=== PATIENT | male | born 1970 | race Caucasian/White ===

== ENCOUNTER → 2017-12-03 | Outpatient (CLI) | payer OTHER | END | disposition home or self-care (01) | LOC: HKI 13:28 | DX: M25.551 Pain in right hip (principal) | CPT/HCPCS: Z7500 ==

== ENCOUNTER 2017-12-04 05:28 | Inpatient (IN) | payer OTHER ==
[2017-12-04] MEDS: ACETAMINOPHEN 1000MG/100ML IV 100 ML IVPB (06:21)
[2017-12-04] MEDS: ONDANSETRON 4 MG INJ IV ×3 (06:22→20:51)
[2017-12-04] MEDS: LANSOPRAZOLE 30 MG CAP PO (06:22)
[2017-12-04] MEDS: CELECOXIB 200 MG CAP PO (06:22)
[2017-12-04] MEDS: DEXAMETHASONE 4 MG/ML 1 ML INJ IV (06:22)
[2017-12-04] MEDS: oxyCODONE (CR) 10 MG TAB [oxyCONTIN] PO (06:23)
[2017-12-04] MEDS: CEFAZOLIN 2 GM/50 ML (PMX) 50 ML IVPB (07:00)
[2017-12-04] MEDS ORDERED: TRANEXAMIC ACID 1,000 MG in SOD CHLORIDE 0.9% 100 ML IVPB (07:00)
[2017-12-04] MEDS: TRANEXAMIC ACID 1,000 MG in SOD CHLORIDE 0.9% 100 ML IVPB (07:00)
[2017-12-04] MEDS ORDERED: ALBUMIN HUMAN 5% 250 ML INJ (07:00)
[2017-12-04] MEDS: HIP PAIN COCKTAIL (CEFUROXIME) INJ ×2 (07:00→09:07)
[2017-12-04] MEDS: LACTATED RINGER'S 1,000 ML IV* (07:00)
[2017-12-04 07:01] LABS: POTASSIUM 4.8 mmol/L (3.5-5.1)
[2017-12-04] MEDS ORDERED: MIDAZOLAM 1 MG/ML 2 ML INJ (07:23)
[2017-12-04] MEDS ORDERED: PROPOFOL 20 ML ×5 (07:23→13:54)
[2017-12-04] MEDS ORDERED: morphine SULFATE/PF (10 MG/10 ML) INJ (07:24)
[2017-12-04] MEDS ORDERED: ONDANSETRON 4 MG INJ (07:24)
[2017-12-04] MEDS ORDERED: METOCLOPRAMIDE 10 MG INJ (07:24)
[2017-12-04] MEDS ORDERED: FENTAnyl 50 MCG/ML VIAL ×2 (07:33→10:42)
[2017-12-04] MEDS ORDERED: SUCCINYLCHOLINE CHLORIDE 100 MG/5 ML SYG IV (08:06)
[2017-12-04] MEDS ORDERED: KETOROLAC 30 MG INJ (08:07)
[2017-12-04] MEDS ORDERED: EPHEDrine SULFATE 50 MG/5 ML SYG (08:09)
[2017-12-04] MEDS: POLYMYXIN/BACITRACIN 1L IRRIG ×3 (09:07→13:46)
[2017-12-04] MEDS: BACITRACIN 50000 UNITS INJ (09:07)
[2017-12-04] MEDS: POLYMYXIN B 500000 UNIT INJ (09:07)
[2017-12-04] MEDS ORDERED: HYDROmorphONE (0.2 MG/ML) 10ML SYG IV ×3 (09:30)
[2017-12-04] MEDS ORDERED: ONDANSETRON 4 MG INJ IV ×2 (09:30→14:30)
[2017-12-04] MEDS ORDERED: DIPHENHYDRAMINE 50 MG INJ IV (09:30)
[2017-12-04] MEDS ORDERED: MEPERIDINE 25 MG INJ IV (09:30)
[2017-12-04] MEDS ORDERED: ALBUMIN HUMAN 5% 250 ML (11:22)
[2017-12-04] MEDS ORDERED: PHENYLephrine (100 MCG/ML) 5ML SYG ×4 (12:20→14:48)
[2017-12-04 12:44] LABS: IMMEDIATE SPIN CROSSMATCH 1 3
[2017-12-04] MEDS ORDERED: PROPOFOL 100 ML (13:54)
[2017-12-04] MEDS ORDERED: ROPIVACAINE 0.5 % 30 ML VIAL (13:58)
[2017-12-04] MEDS: SOD CHLORIDE 0.9% 1,000 ML IV ×2 (14:26→21:14)
[2017-12-04] MEDS ORDERED: MAGNESIUM HYDROXIDE 30ML CUP PO (14:30)
[2017-12-04] MEDS ORDERED: CEFAZOLIN 1 GM/50 ML (PMX) 50 ML IVPB (14:30)
[2017-12-04] MEDS ORDERED: NALOXONE (0.4 MG/ML) INJ IV (14:30)
[2017-12-04] MEDS ORDERED: BISACODYL 10 MG SUPP PR (14:30)
[2017-12-04] MEDS ORDERED: DIPHENHYDRAMINE 50 MG INJ IM (14:30)
[2017-12-04] MEDS ORDERED: NA PHOSPHATE/BIPHOS 133 ML ENEMA PR (14:30)
[2017-12-04] MEDS ORDERED: NACL 0.9% 3 ML SYG IV (14:30)
[2017-12-04] MEDS ORDERED: SENNA/DOCUSATE NA (8.6MG/50MG) TAB PO (14:30)
[2017-12-04] MEDS: CEFAZOLIN 1 GM/50 ML (PMX) 50 ML IVPB ×2 (15:53→22:51)
[2017-12-04] MEDS: DOCUSATE SODIUM 100 MG CAP PO (15:54)
[2017-12-04] MEDS: ASPIRIN (EC) 325 MG TAB PO ×2 (15:55→20:51)
[2017-12-04] MEDS ORDERED: ASPIRIN (EC) 325 MG TAB PO (21:00)
[2017-12-04] MEDS: HYDROCODONE/APAP (5/325) TAB GTB (22:57)
[2017-12-05] MEDS: ONDANSETRON 4 MG INJ IV ×2 (02:32→08:15)
[2017-12-05] MEDS: SOD CHLORIDE 0.9% 1,000 ML IV (02:56)
[2017-12-05] MEDS: oxyCODONE 5 MG TAB PO ×5 (04:41→23:39)
[2017-12-05 05:36] LABS: ADD MAN DIFF? NO
[2017-12-05 05:45] LABS: BASOPHILS % 0.1 % (0.0-2.0); HEMATOCRIT 24.5 % (42.0-52.0); HEMOGLOBIN 8.4 g/dl (14.0-18.0); LYMPHOCYTES % 21.7 % (15.0-51.0); MEAN CORPUSCULAR HEMOGLOBIN 30.5 pg (29.0-33.0); MEAN CORPUSCULAR HGB CONC 34.3 g/dl (32.0-37.0); MEAN CORPUSCULAR VOLUME 89.1 fl (82.0-101.0); MONOCYTE # 0.9 10^3/ul (0.3-0.9); MONOCYTES % 9.7 % (0.0-11.0); NEUTROPHIL # 6.2 10^3/ul (1.6-7.5); PLATELET COUNT 231 10^3/UL (140-415); RED BLOOD COUNT 2.75 10^6/ul (4.70-6.10); RED CELL DISTRIBUTION WIDTH 13.4 % (11.5-14.5)
[2017-12-05 05:45] LABS: WHITE BLOOD COUNT 9.1 10^3/ul (4.8-10.8)
[2017-12-05 06:00] LABS: CHOL/HDL RATIO 4.1 RATIO; CHOLESTEROL 108 mg/dl (100-200); HDL CHOLESTEROL 26 mg/dl (28-71); LDL CHOLESTEROL,CALCULATED 51 mg/dl; TRIGLYCERIDES 156 mg/dl (0-149)
[2017-12-05 06:00] LABS: MAGNESIUM 1.9 mg/dl (1.7-2.5)
[2017-12-05] MEDS ORDERED: PANTOPRAZOLE (EC) 40 MG TAB PO (06:00)
[2017-12-05] MEDS ORDERED: KETOROLAC 15 MG INJ INJ (06:00)
[2017-12-05 06:02] LABS: ANION GAP 13 (8-16); BLOOD UREA NITROGEN 22 mg/dl (7-20); CARBON DIOXIDE 25 mmol/L (21-31); CHLORIDE 107 mmol/L (97-110); CREATININE 0.82 mg/dl (0.61-1.24); GLUCOSE 99 mg/dl (70-220); POTASSIUM 4.6 mmol/L (3.5-5.1); SODIUM 140 mmol/L (135-144)
[2017-12-05] MEDS: CEFAZOLIN 1 GM/50 ML (PMX) 50 ML IVPB (06:14)
[2017-12-05] MEDS: PANTOPRAZOLE (EC) 40 MG TAB PO (06:15)
[2017-12-05] MEDS: DOCUSATE SODIUM 100 MG CAP PO ×2 (08:15→20:09)
[2017-12-05] MEDS: ASPIRIN (EC) 325 MG TAB PO ×2 (08:15→20:09)
[2017-12-05 09:53] LABS: ADD UMIC NO; UR ASCORBIC ACID NEGATIVE (NEGATIVE); UR BACTERIA FEW /HPF (NONE SEEN); UR BILIRUBIN (Dip) NEGATIVE (NEGATIVE); UR BLOOD (Dip) NEGATIVE (NEGATIVE); UR CLARITY CLEAR (CLEAR); UR COLOR YELLOW (YELLOW); UR GLUCOSE (Dip) NEGATIVE (NEGATIVE); UR KETONES (Dip) NEGATIVE (NEGATIVE); UR LEUKOCYTE ESTERASE (Dip) NEGATIVE Leu/ul (NEGATIVE); UR NITRITE (Dip) NEGATIVE (NEGATIVE); UR RBC 1 /HPF (0-5); UR SPECIFIC GRAVITY (Dip) 1.011 (1.003-1.030); UR TOTAL PROTEIN (Dip) NEGATIVE (NEGATIVE); UR UROBILINOGEN (Dip) NEGATIVE (NEGATIVE); UR WBC 2 /HPF (0-5)
[2017-12-05] MEDS: HYDROCODONE/APAP (5/325) TAB GTB (13:33)
[2017-12-05] MEDS ORDERED: ONDANSETRON 4 MG INJ IV (14:30)
[2017-12-05] MEDS: oxyCODONE 15 MG TAB PO (15:53)
[2017-12-05] MEDS: ATORVASTATIN 10 MG TAB PO (20:09)
[2017-12-06] MEDS: ACETAMINOPHEN 325 MG TAB PO ×4 (00:02→20:42)
[2017-12-06] MEDS: PANTOPRAZOLE (EC) 40 MG TAB PO (05:06)
[2017-12-06] MEDS: oxyCODONE 5 MG TAB PO ×4 (05:06→20:42)
[2017-12-06 05:59] LABS: ADD MAN DIFF? NO
[2017-12-06 06:11] LABS: WHITE BLOOD COUNT 7.6 10^3/ul (4.8-10.8)
[2017-12-06 06:11] LABS: BASOPHILS % 0.4 % (0.0-2.0); EOSINOPHILS # 0.1 10^3/ul (0.0-0.5); EOSINOPHILS % 0.9 % (0.0-7.0); HEMATOCRIT 22.9 % (42.0-52.0); HEMOGLOBIN 7.7 g/dl (14.0-18.0); LYMPHOCYTES # 2.2 10^3/ul (0.8-2.9); LYMPHOCYTES % 29.6 % (15.0-51.0); MEAN CORPUSCULAR HEMOGLOBIN 30.2 pg (29.0-33.0); MEAN CORPUSCULAR HGB CONC 33.6 g/dl (32.0-37.0); MEAN CORPUSCULAR VOLUME 89.8 fl (82.0-101.0); MEAN PLATELET VOLUME 9.3 fl (7.4-10.4); MONOCYTE # 0.9 10^3/ul (0.3-0.9); MONOCYTES % 11.4 % (0.0-11.0); NEUTROPHIL # 4.3 10^3/ul (1.6-7.5); NEUTROPHILS % 56.8 % (39.0-77.0); PLATELET COUNT 223 10^3/UL (140-415); RED BLOOD COUNT 2.55 10^6/ul (4.70-6.10)
[2017-12-06 06:49] LABS: ANION GAP 8 (8-16); BLOOD UREA NITROGEN 14 mg/dl (7-20); CALCIUM 8.1 mg/dl (8.4-10.2); CARBON DIOXIDE 29 mmol/L (21-31); CHLORIDE 105 mmol/L (97-110); CREATININE 0.78 mg/dl (0.61-1.24); GLUCOSE 97 mg/dl (70-220); POTASSIUM 4.2 mmol/L (3.5-5.1); SODIUM 138 mmol/L (135-144)
[2017-12-06] MEDS: ASPIRIN (EC) 325 MG TAB PO ×2 (08:56→20:42)
[2017-12-06] MEDS: DOCUSATE SODIUM 100 MG CAP PO ×2 (08:57→20:42)
[2017-12-06] MEDS: AMLODIPINE 10 MG TAB PO (08:57)
[2017-12-06] MEDS: LOSARTAN 50 MG TAB PO (08:57)
[2017-12-06] MEDS: ATORVASTATIN 10 MG TAB PO (20:42)
[2017-12-07] MEDS: ONDANSETRON 4 MG TAB PO (01:37)
[2017-12-07] MEDS: ACETAMINOPHEN 325 MG TAB PO ×2 (03:05→13:20)
[2017-12-07 05:07] LABS: ADD MAN DIFF? NO
[2017-12-07 05:11] LABS: WHITE BLOOD COUNT 7.8 10^3/ul (4.8-10.8)
[2017-12-07 05:11] LABS: BASOPHILS % 0.5 % (0.0-2.0); EOSINOPHILS # 0.1 10^3/ul (0.0-0.5); EOSINOPHILS % 1.5 % (0.0-7.0); HEMOGLOBIN 7.1 g/dl (14.0-18.0); LYMPHOCYTES # 1.8 10^3/ul (0.8-2.9); LYMPHOCYTES % 23.7 % (15.0-51.0); MEAN CORPUSCULAR HEMOGLOBIN 29.8 pg (29.0-33.0); MEAN CORPUSCULAR HGB CONC 33.8 g/dl (32.0-37.0); MEAN CORPUSCULAR VOLUME 88.2 fl (82.0-101.0); MONOCYTE # 0.7 10^3/ul (0.3-0.9); MONOCYTES % 9.5 % (0.0-11.0); NEUTROPHIL # 4.9 10^3/ul (1.6-7.5); NEUTROPHILS % 63.5 % (39.0-77.0); PLATELET COUNT 221 10^3/UL (140-415); RED BLOOD COUNT 2.38 10^6/ul (4.70-6.10)
[2017-12-07 05:58] LABS: ANION GAP 11 (8-16); BLOOD UREA NITROGEN 10 mg/dl (7-20); CALCIUM 8.3 mg/dl (8.4-10.2); CARBON DIOXIDE 30 mmol/L (21-31); CHLORIDE 104 mmol/L (97-110); CREATININE 0.66 mg/dl (0.61-1.24); GLUCOSE 100 mg/dl (70-220); SODIUM 141 mmol/L (135-144)
[2017-12-07] MEDS: PANTOPRAZOLE (EC) 40 MG TAB PO (06:45)
[2017-12-07] MEDS: DOCUSATE SODIUM 100 MG CAP PO (08:39)
[2017-12-07] MEDS: ASPIRIN (EC) 325 MG TAB PO (08:40)
[2017-12-07] MEDS: AMLODIPINE 10 MG TAB PO (08:40)
[2017-12-07] MEDS: LOSARTAN 50 MG TAB PO (08:40)
[2017-12-07] MEDS: oxyCODONE 5 MG TAB PO (10:48)
[2017-12-07 12:50] LABS: HEPATITIS B SURFACE ANTIGEN NEGATIVE (NEGATIVE)
[2017-12-07 13:07] LABS: HEPATITIS C VIRAL ANTIBODY NEGATIVE (NEGATIVE)
== END 2017-12-07 14:52 | disposition home health service (06) | DRG 470 ==
LOC: REC 05:28 → MS1 17:03
PROVIDERS: Orthopaedic Surgery Adult Reconstructive Orthopaedic Surgery
PROC: 0SR904A Replacement of Right Hip Joint with Ceramic on Polyethylene Synthetic Substitute, Uncemented, Open Approach (ICD-10-PCS; principal; 2017-12-04 07:30)
PROC: 30233N1 Transfusion of Nonautologous Red Blood Cells into Peripheral Vein, Percutaneous Approach (ICD-10-PCS; 2017-12-04 07:30)
DX: M16.11 Unilateral primary osteoarthritis, right hip (principal); I10 Essential (primary) hypertension; D62 Acute posthemorrhagic anemia; E78.5 Hyperlipidemia, unspecified; M25.511 Pain in right shoulder; M25.512 Pain in left shoulder; B36.8 Other specified superficial mycoses
CPT/HCPCS: 36430; 72170; 73510; 73530; 73562; 80048; 80061; 81003; 83735; 84132; 85025; 86803; 86850; 86900; 86901; 86920; 87086; 87340; 88304; 88311; 97110; 97116; 97163; 97165; 97530

== ENCOUNTER → 2017-12-23 | Outpatient (CLI) | payer OTHER | END | disposition home or self-care (01) | LOC: HKI 14:41 | DX: Z47.1 Aftercare following joint replacement surgery (principal); Z96.641 Presence of right artificial hip joint | CPT/HCPCS: 73502 ==

== ENCOUNTER → 2018-01-07 | Outpatient (CLI) | payer OTHER | END | disposition home or self-care (01) | LOC: HKI 14:00 | DX: S72.111D Displaced fracture of greater trochanter of right femur, subsequent encounter for closed fracture with routine healing (principal); X58.XXXD Exposure to other specified factors, subsequent encounter; Z96.641 Presence of right artificial hip joint | CPT/HCPCS: 73502 ==

== ENCOUNTER → 2018-07-01 | Outpatient (CLI) | payer OTHER | END | disposition home or self-care (01) | LOC: HKI 15:03 | DX: Z09 Encounter for follow-up examination after completed treatment for conditions other than malignant neoplasm (principal); Z96.641 Presence of right artificial hip joint; R20.0 Anesthesia of skin | CPT/HCPCS: 73502 ==